=== PATIENT | female | born 1990 | race African-American/Black ===

== ENCOUNTER 2023-08-24 12:45 | Outpatient (CLI) | payer SELFPAY ==
--- NOTE | ~2023-08-24 | XR_ITS ---
EXAM: XR hip LT min 2V DATE: 08/24/2023 13:09 HISTORY: PAIN OF LT HIP JOINT- NO INJURY . COMPARISON: None available. FINDINGS: Normal mineralization. No fracture or dislocation. No lytic or blastic lesion. Joint space s are maintained. No erosion or periosteal change. Soft tissues within normal limits. IMPRESSION: Normal left hip radiograph findings. Reviewed, dictated and finalized at location K. [employer]
== END 2023-08-24 12:46 | disposition home or self-care (01) ==
PROVIDERS: PCP Physician Assistant; Visit Provider Physician Assistant
DX: M25.552 Pain in left hip (principal)
CPT/HCPCS: 73502